=== PATIENT | male | born 1940 | race Caucasian/White ===

== ENCOUNTER 2018-05-22 15:01 | Emergency (ER) | payer OTHER ==
--- NOTE | 2018-05-22 16:18 | EDPHYS ---
Physician Documentation [facility] Name: Mark Beck Jr Age: 77 yrs Sex: Male : 1940 Arrival Date: 05/22/2018 Time: 15:04 Bed 17 Private MD: Ignacio Kent F ED Physician Bakari Valenzuela HPI: 05/22 15:55 This 77 yrs old Male presents to ER via Ambulatory with complaints of Cough. cp 15:55 The patient or guardian reports cough, that is intermittent. cp 15:55 Onset: The symptoms/episode began/occurred 2 month(s) ago. cp 15:55 Associated signs and symptoms: Pertinent negatives: chest pain, diarrhea, fever, cp vomiting. Patient reports PCP is DR Hamilton who ordered chest xray and chest CT last week. Patient reports he attempted to contact DR Hamilton's office for results of CT and chest xray but was unsuccessful. Patient denies fever, denies hemoptysis. Historical: - Allergies: 15:12 No Known Allergies; sv - PMHx: 15:12 None; sv - PSHx: 15:12 right shoulder; sv ROS: 16:00 Constitutional: Negative for body aches, chills, fever, poor PO intake, weight loss. cp 16:00 Eyes: Negative for injury, pain, redness, and discharge. cp 16:00 ENT: Negative for drainage from ear(s), ear pain, sore throat, difficulty swallowing, difficulty handling secretions. 16:00 Cardiovascular: Negative for chest pain, edema, palpitations. 16:00 Neck: Negative for pain with movement, pain at rest, stiffness, tenderness. cp 16:00 Respiratory: Positive for cough, "sounds productive", Negative for shortness of breath, wheezing. 16:00 Abdomen/GI: Negative for abdominal pain, nausea, vomiting, and diarrhea, black/tarry stool, rectal bleeding. 16:00 Back: Negative for pain at rest, pain with movement. 16:00 Skin: Negative for cellulitis, rash. 16:00 Neuro: Negative for altered mental status, headache, syncope, weakness. 16:00 All other systems are negative. Exam: 16:07 Constitutional: The patient appears in no acute distress, alert, awake, cp non-diaphoretic, non-toxic, well developed, well nourished. 16:07 Head/Face: Normocephalic, atraumatic. cp 16:07 Eyes: Periorbital structures: appear normal, Conjunctiva: normal, no exudate, no injection, Sclera: no appreciated abnormality, Lids and lashes: appear normal, bilaterally. 16:07 ENT: External ear(s): are unremarkable, Nose: is normal, Mouth: Lips: moist, Oral mucosa: moist, Posterior pharynx: is normal, airway is patent, no erythema, no exudate. 16:07 Neck: ROM/movement: is normal, is supple, without pain, no range of motions limitations, no nuchal rigidity. 16:07 Chest/axilla: Inspection: normal, Palpation: is normal, no crepitus, no tenderness. 16:07 Cardiovascular: Rate: normal, Rhythm: regular, Edema: is not appreciated. 16:07 Respiratory: the patient does not display signs of respiratory distress, Respirations: normal, no use of accessory muscles, no retractions, no splinting, no tachypnea, labored breathing, is not present, Breath sounds: are clear throughout, no decreased breath sounds, no stridor, no wheezing. 16:07 Abdomen/GI: Exam negative for discomfort, distension, guarding, Inspection: abdomen appears normal. 16:07 Skin: cellulitis, is not appreciated, no rash present. Vital Signs: 15:12 BP 135 / 95; Pulse 68; Resp 18; Temp 98.6; Pulse Ox 97% ; Weight 83.46 kg; Height 5 ft. sv 11 in. (180.34 cm); 15:12 Body Mass Index 25.66 (83.46 kg, 180.34 cm) sv MDM: 15:52 Patient medically screened. cp 16:10 Data reviewed: vital signs, nurses notes, old medical records, reports from recent chest xray and chest CT. Counseling: I had a detailed discussion with the patient and/or guardian regarding: the historical points, exam findings, and any diagnostic results supporting the discharge/admit diagnosis, radiology results, the need for outpatient follow up, a sas programmer analyst, to return to the emergency department if symptoms worsen or persist or if there are any questions or concerns that arise at home. ED course: VSS. Discussed results from recent CT chest that showed mass of right lung. Will discharge to home and patient instructed on f/u with DR Wiseman . Administered Medications: No medications were administered Disposition: 05/22/18 16:18 Discharged to Home. Impression: Cough, Right lung mass. - Condition is Stable. - Discharge Instructions: Pulmonary Nodule, Cough, Adult. - Prescriptions for Tessalon Perles 100 mg Oral Capsule - take 1 capsule by ORAL route every 8 hours As needed; 15 capsule. Albuterol Sulfate 90 mcg/actuation - inhale 1-2 puff by INHALATION route every 4-6 hours; 1 Inhaler. - Medication Reconciliation Form, Thank You Letter, Antibiotic Education, Prescription Opioid Use form. - Follow up: Demetrio Wiseman MD; When: next week; Reason: Recheck today's complaints. - Problem is an ongoing problem. - Symptoms are unchanged. Addendum: 05/25/2018 05:33 Co-signature as Attending Physician, Bakari Valenzuela MD I agree with the assessment and c edwards plan of care. Signatures: Tracy Hendricks RN RN sv Anderson, Corey, MD MD cha Calderon, Audri, RN RN aa5 Bakari De Paz PA PA cp Corrections: (The following items were deleted from the chart) 05/22 16:37 16:18 05/22/2018 16:18 Discharged to Home. Impression: Cough; Right lung mass. aa5 Condition is Stable. Forms are Medication Reconciliation Form, Thank You Letter, Antibiotic Education, Prescription Opioid Use. Follow up: Demetrio Wiseman; When: next week; Reason: Recheck today's complaints. Problem is an ongoing problem. Symptoms are unchanged. cp
--- NOTE | 2018-05-22 16:18 | ER ---
Nurse's Notes [facility] Name: Mark Beck Jr Age: 77 yrs Sex: Male : 1940 Arrival Date: 05/22/2018 Time: 15:04 Bed 17 Private MD: Ignacio Kent F Diagnosis: Cough;Right lung mass Presentation: 05/22 15:10 Presenting complaint: Patient states: productive cough x 3 days (has been getting sv worse/"feels like something is cutting in there) but has been having this going on since March and has seen PCP and had a xray and CT done (showed some concerning stuff). Transition of care: patient was not received from another setting of care. Onset of symptoms is unknown. Care prior to arrival: None. 15:10 Method Of Arrival: Ambulatory sv 15:10 Acuity: ERLIN 3 sv Historical: - Allergies: 15:12 No Known Allergies; sv - PMHx: 15:12 None; sv - PSHx: 15:12 right shoulder; sv Vital Signs: 15:12 BP 135 / 95; Pulse 68; Resp 18; Temp 98.6; Pulse Ox 97% ; Weight 83.46 kg; Height 5 ft. sv 11 in. (180.34 cm); 15:12 Body Mass Index 25.66 (83.46 kg, 180.34 cm) sv ED Course: 15:04 Patient arrived in ED. rg4 15:04 Ignacio Kent MD is Private Physician. rg4 15:12 Triage completed. sv 15:14 Arm band placed on. sv 15:52 [facility]. cp 15:52 Bakari Valenzuela MD is Attending Physician. cp 16:15 Demetrio Wiseman MD is Referral Physician. cp Administered Medications: No medications were administered Outcome: 16:18 Discharge ordered by MD. cp 16:36 Discharged to home ambulatory, with family. aa5 16:36 Condition: stable 16:36 Discharge instructions given to patient, family, Instructed on discharge instructions, follow up and referral plans. medication usage, Demonstrated understanding of instructions, follow-up care, medications, Prescriptions given X 2. 16:37 Patient left the ED. aa5 Signatures: Tracy Hendricks RN RN Ellen Howell RN RN aa5 Baakri De Paz PA PA chris Montano Carly rg4
== END 2018-05-22 16:37 | disposition home or self-care (01) ==
LOC: ER 15:01
DX: R05 Cough (principal); R91.8 Other nonspecific abnormal finding of lung field
CPT/HCPCS: 99282

== ENCOUNTER 2020-03-05 17:12 | Emergency (ER) | payer OTHER ==
[2020-03-05] MEDS ORDERED: LIDOCAINE 1% MPF 5 ML VIAL ONE (17:47)
[2020-03-05] MEDS ORDERED: TETANUS & DIPHTHERIA TOX,ADULT 0.5 ML VIAL ONE (17:47)
--- NOTE | 2020-03-05 18:11 | EDPHYS ---
Physician Documentation [facility] Name: Mark Beck Jr Age: 79 yrs Sex: Male : 1940 Arrival Date: 03/05/2020 Time: 17:14 Bed 20 Private MD: ED Physician Jeet Ya HPI: 03/05 18:02 This 79 yrs old Male presents to ER via Ambulatory with complaints of rn Laceration - finger. 18:02 The patient has a laceration related to: doing yard work, chainsaw, occurred and there rn are no complicating factors. The injury was accidental. The laceration(s) is(are) located on the dorsal aspect of proximal phalanx of left index finger. Onset: The symptoms/episode began/occurred just prior to arrival. Associated signs and symptoms: Pertinent negatives: dizziness, heavy bleeding, numbness distal to injury, suspected foreign body. The patient has not experienced similar symptoms in the past. Accidental laceration to left 2nd digit while using chainsaw. Historical: - Allergies: 17:36 No Known Allergies; ae4 - Home Meds: 17:36 gabapentin oral oral [Active]; ae4 - PMHx: 17:36 shingles; ae4 - PSHx: 17:36 shoulder sx; ae4 - Immunization history:: Last tetanus immunization: > 10 years ago. - Social history:: Smoking status: Patient/guardian denies using tobacco, but has a distant history of tobacco abuse. - Family history:: not pertinent. - Hospitalizations: : No recent hospitalization is reported. ROS: 18:02 Constitutional: Negative for fever, chills, and weight loss, Skin: + laceration to left rn 2nd digit Exam: 18:02 Constitutional: This is a well developed, well nourished patient who is awake, alert, rn and in no acute distress. MS/ Extremity: Pulses equal, no cyanosis. Neurovascular intact. Full, normal range of motion. 3cm total, jagged superficial laceration dorsum left 2nd digit between PIP and DIP, no foreign body, no active bleeding. Vital Signs: 17:25 BP 161 / 107; Pulse 77; Resp 17; Temp 98.4(TE); Pulse Ox 99% on R/A; Weight 90.72 kg ae4 (R); Height 5 ft. 11 in. (180.34 cm); 17:25 Body Mass Index 27.89 (90.72 kg, 180.34 cm) ae4 Laceration: 18:02 Wound Repair of 3cm ( 1.2in ) subcutaneous laceration to dorsal aspect of middle rn phalanx of left index finger. Distal neuro/vascular/tendon intact. Anesthesia: Regional Block with 3 mls of 1% lidocaine. Wound prep: Moderate cleansing by nurse. Skin closed with 8 5-0 Prolene using interrupted sutures and sterile technique. Dressed with 4x4's, non-adherent dressing, finger splint. Patient tolerated well. MDM: 17:25 Patient medically screened. rn 18:02 Differential diagnosis: superficial laceration. Data reviewed: vital signs, nurses rn notes, and as a result, I will discharge patient. Counseling: I had a detailed discussion with the patient and/or guardian regarding: the historical points, exam findings, and any diagnostic results supporting the discharge/admit diagnosis, the need for outpatient follow up, to return to the emergency department if symptoms worsen or persist or if there are any questions or concerns that arise at home. Response to treatment: the patient's symptoms have markedly improved after treatment, and as a result, I will discharge patient. Special discussion: I discussed with the patient/guardian in detail that at this point there is no indication for admission to the hospital. It is understood, however, that if the symptoms persist or worsen the patient needs to return immediately for re-evaluation. ED course: Tetanus updated, wound sutured, tolerated well. . 03/05 17: Order name: Suture Tray at Bedside; Complete Time: 17:35 rn 03/05 17: Order name: Prolene, Sutures; Complete Time: 17:48 rn Administered Medications: 17:35 Drug: Lidocaine (1 %) 1 vials Volume: 5 ml; Route: Infiltration; rb3 17:37 Drug: Tetanus-Diphtheria Toxoid Adult 0.5 ml {Feller Hand: [employer]. Exp: rb3 06/18/2021. Lot #: [id number]. } Route: IM; Site: left deltoid; 17:50 Follow up: Response: No adverse reaction rb3 Disposition: 03/05/20 18:10 Discharged to Home. Impression: Superficial laceration, 2nd digit of left hand. - Condition is Stable. - Discharge Instructions: Laceration Care, Adult, Sutured Wound Care. - Medication Reconciliation Form, Thank You Letter, Antibiotic Education, Prescription Opioid Use form. - Follow up: Emergency Department; When: 14 days; Reason: Staple/Suture removal. - Problem is new. - Symptoms have improved. Signatures: Jeet Ya MD MD rn Elliott, Andrea, RN RN ae4 Elsie Pacheco RN RN rb3 Corrections: (The following items were deleted from the chart) 18:25 18:10 03/05/2020 18:10 Discharged to Home. Impression: Superficial laceration, 2nd rb3 digit of left hand. Condition is Stable. Forms are Medication Reconciliation Form, Thank You Letter, Antibiotic Education, Prescription Opioid Use. Follow up: Emergency Department; When: 14 days; Reason: Staple/Suture removal. Problem is new. Symptoms have improved. rn
--- NOTE | 2020-03-05 18:11 | ER ---
Nurse's Notes [facility] Name: Mark Beck Jr Age: 79 yrs Sex: Male : 1940 Arrival Date: 03/05/2020 Time: 17:14 Bed 20 Private MD: Diagnosis: Superficial laceration, 2nd digit of left hand Presentation: 03/05 17:27 Chief complaint: Patient states: Pt was using a chain saw, when it slipped and he cut ae4 his left index finger. 17:27 Acuity: ERLIN 3 ae4 17:27 Method Of Arrival: Ambulatory ae4 17:27 Complicating Factors: There are no complicating factors for this patient. Initial rb3 Sepsis Screen: Does the patient meet any 2 criteria? No. Patient's initial sepsis screen is negative. Does the patient have a suspected source of infection? Yes: Skin breakdown/wound. 17:37 Coronavirus screen: Client denies travel out of the [place] in the last 14 days. At this ae4 time, the client does not indicate any symptoms associated with coronavirus-19. Ebola Screen: Patient denies travel to an Ebola-affected area in the 21 days before illness onset. 17:37 Risk Assessment: Do you want to hurt yourself or someone else? Patient reports no ae4 desire to harm self or others. 17:55 Onset of symptoms was March 05, 2020 at 16:40. rb3 Triage Assessment: 17:35 General: Appears in no apparent distress. comfortable, slender, Behavior is calm, ae4 cooperative. Pain: Complains of pain in dorsal aspect of distal phalanx of left index finger, dorsal aspect of middle phalanx of left index finger, dorsal aspect of proximal phalanx of left index finger, palmar aspect of distal phalanx of left index finger, palmar aspect of middle phalanx of left index finger, palmar aspect of proximal phalanx of left index finger and left index fingernail. Musculoskeletal: Swelling present in dorsal aspect of distal phalanx of left index finger, dorsal aspect of middle phalanx of left index finger, dorsal aspect of proximal phalanx of left index finger, palmar aspect of distal phalanx of left index finger, palmar aspect of middle phalanx of left index finger and palmar aspect of proximal phalanx of left index finger. Injury Description: Laceration sustained to dorsal aspect of distal phalanx of left index finger, dorsal aspect of middle phalanx of left index finger, dorsal aspect of proximal phalanx of left index finger, palmar aspect of distal phalanx of left index finger, palmar aspect of middle phalanx of left index finger and palmar aspect of proximal phalanx of left index finger is jagged, 0.5 to 2.5 cm long, not bleeding. Historical: - Allergies: 17:36 No Known Allergies; ae4 - Home Meds: 17:36 gabapentin oral oral [Active]; ae4 - PMHx: 17:36 shingles; ae4 - PSHx: 17:36 shoulder sx; ae4 - Immunization history:: Last tetanus immunization: > 10 years ago. - Social history:: Smoking status: Patient/guardian denies using tobacco, but has a distant history of tobacco abuse. - Family history:: not pertinent. - Hospitalizations: : No recent hospitalization is reported. Screenin:27 Abuse screen: Denies threats or abuse. Nutritional screening: No deficits noted. rb3 Tuberculosis screening: No symptoms or risk factors identified. Fall Risk None identified. Assessment: 17:50 General: Appears in no apparent distress. comfortable, Behavior is calm, cooperative. rb3 Pain: Complains of pain in left index finger Pain currently is 3 out of 10 on a pain scale. Neuro: Level of Consciousness is awake, alert, obeys commands, Oriented to person, place, time, situation. Cardiovascular: Capillary refill < 3 seconds in left fingers Patient's skin is warm and dry. Respiratory: Airway is patent Respiratory effort is even, unlabored, Respiratory pattern is regular, symmetrical. GI: No signs and/or symptoms were reported involving the gastrointestinal system. : No signs and/or symptoms were reported regarding the genitourinary system. Musculoskeletal: Range of motion: intact in all extremities. Injury Description: Laceration sustained to left index finger is contaminated, was sustained 30-60 minutes ago. is bleeding a small amount. 18:22 Reassessment: Applied a non adherent bandage with a finger splint per Dr. Ya's rb3 verbal order. Pt. tolerated well. Educated the pt on wound and splint care. Pt. verbalized understanding. Vital Signs: 17:25 BP 161 / 107; Pulse 77; Resp 17; Temp 98.4(TE); Pulse Ox 99% on R/A; Weight 90.72 kg ae4 (R); Height 5 ft. 11 in. (180.34 cm); 17:25 Body Mass Index 27.89 (90.72 kg, 180.34 cm) ae4 ED Course: 17:14 Patient arrived in ED. as 17:25 Jeet Ya MD is Attending Physician. rn 17:25 Arm band placed on right wrist. ae4 17:26 Elsie Pacheco, RN is Primary Nurse. rb3 17:34 Triage completed. ae4 17:37 Patient has correct armband on for positive identification. Bed in low position. Call ae4 light in reach. Adult w/ patient. 18:24 No provider procedures requiring assistance completed. Patient did not have IV access rb3 during this emergency room visit. Administered Medications: 17:35 Drug: Lidocaine (1 %) 1 vials Volume: 5 ml; Route: Infiltration; rb3 17:37 Drug: Tetanus-Diphtheria Toxoid Adult 0.5 ml {Street [employer]: [employer]. Exp: rb3 06/18/2021. Lot #: [id number]. } Route: IM; Site: left deltoid; 17:50 Follow up: Response: No adverse reaction rb3 Outcome: 18:10 Discharge ordered by . rn 18:24 Discharged to home ambulatory, with family. rb3 18:24 Condition: stable 18:24 Discharge instructions given to patient, Instructed on discharge instructions, follow up and referral plans. Demonstrated understanding of instructions, follow-up care, Prescriptions given X none 18:25 Patient left the ED. rb3 Signatures: Michelle Martinez as Jeet Ya MD MD rn Elliott, Andrea, RN RN ae4 Elsie Pacheco, NAZANIN RN rb3
[2020-03-06 00:58] VITALS: BP 161/107; TEMP 98.4; O2SAT 99
== END 2020-03-05 18:25 | disposition home or self-care (01) ==
LOC: ER 17:12
PROC: 0HQGXZZ Repair Left Hand Skin, External Approach (ICD-10-PCS; principal; 2020-03-05)
DX: S61.211A Laceration without foreign body of left index finger without damage to nail, initial encounter (principal); Z23 Encounter for immunization; W29.3XXA Contact with powered garden and outdoor hand tools and machinery, initial encounter; Y92.007 Garden or yard of unspecified non-institutional (private) residence as the place of occurrence of the external cause; Z87.891 Personal history of nicotine dependence
CPT/HCPCS: 90471; 90714; 99283